=== PATIENT | female | born 1935 | race Caucasian/White ===

== ENCOUNTER 2023-04-02 15:18 | Emergency (ER) | payer MEDICARE, SELFPAY ==
[2023-04-02 15:19] VITALS: BP 153/81; PULSE 69; RESP 20; TEMP 36.6; O2SAT 95; BMI 22.4
--- NOTE | 2023-04-02 15:34 | EX.ED.DYSGE1 ---
HPI History of Present Illness Chief Complaint: Syncope Informant: patient and family Onset/Context/Timing Onset: Today Narrative Narrative: Patient presents with a syncopal episode at dinner. Patient had just had Thanksgiving meal with her family. She states she remembers feeling a bit nauseated and warm. She denies having chest pain or palpitations. She members feeling lightheaded and then remembers people around her talking about calling an ambulance. Family states that she cannot slumped to her side they do not believe she completely lost consciousness. She denies any abdominal pain or nausea at this time. She states she just feels tired. [facility] Medical History (Updated 04/02/23 @ 18:[address] Johanny Panchal MD) Glaucoma Urinary incontinence Allergy/AdvReac Type Severity Reaction Status Date / Time No Known Allergies Allergy Verified 04/02/23 15:19 Social History Smoking Status: Never smoker ROS ROS ED Constitutional Constitutional ED: Denies chills or fever(s) Eyes Eyes: Denies change in vision ENT ENT ED: Denies rhinorrhea or sore throat Cardiovascular Cardiovascular: Denies chest pain or palpitations Respiratory/Chest Respiratory/Chest: Denies cough or dyspnea Gastrointestinal Gastrointestinal: Reports abdominal pain and nausea; Denies diarrhea or vomiting Genitourinary Genitourinary ED: Reports other Details: Increased episodes of incontinence recently. ; Denies dysuria Musculoskeletal Musculoskeletal: Denies back pain or extremity pain Integumentary Denies Abrasions or rash Neurologic Neurologic: Reports weakness; Denies headache(s) Psychiatric Psychiatric: Denies anxiety or depression Allergic/Immunologic Allergic/Immunologic ED: Denies lip swelling or urticaria EXAM Physical Exam Const Vital Signs: 04/02/23 15:19 04/02/23 15:27 Temperature 97.8 F Temperature Source Temporal Pulse Rate 69 Respiratory Rate 20 H Respiratory Effort Normal Non-Labored Respiratory Pattern Normal Blood Pressure 153/81 H Blood Pressure Mean 105 Pulse Ox 95 Oxygen Delivery Method Room Air Positive well nourished and well developed General Appearance ED: well developed HEENT Reports moist mucous membranes Eyes EOMs intact bilaterally Chest Wall inspection of chest normal and palpation of chest normal Resp normal respiratory effort and clear to auscultation bilaterally Cardio regular rate and regular rhythm GI non-tender Auscultation: hypoactive bowel sounds Palpation: soft Extremity normal to inspection Neuro oriented x3 and no sensory deficits noted Motor Exam: strength 5/5 throughout Psych mental status grossly normal Skin no rashes or lesions noted MDM MDM MDM Narrative Medical decision making narrative: Patient placed on triage registered nurse. EKG obtained to evaluate for cardiac arrhythmia/ischemia. Chest x-ray obtained to evaluate for acute lung pathology, cardiac size, or mediastinal abnormality. Labwork obtained to evaluate for leukocytosis, anemia, and electrolyte derangement. Urinalysis obtained to evaluate for infection/hematuria. History & Record Review Discussion w/independent historian: Patient and Family Lab Data Attestation: I reviewed the patient's lab results. Labs: Laboratory Results - last 24 hr 04/02/23 04/02/23 15:22 17:30 WBC 7.7 RBC 5.02 Hgb 15.2 H Hct 46.0 MCV 91.6 MCH 30.3 MCHC 33.0 RDW Std Deviation 45.1 H RDW Coeff of Vi 13.3 Plt Count 201 MPV 11.2 Immature Gran % (Auto) 0.100 Neut % (Auto) 57.7 Lymph % (Auto) 29.8 Dougherty % (Auto) 9.7 Eos % (Auto) 2.2 Baso % (Auto) 0.5 Absolute Neuts (auto) 4.4 Absolute Lymphs (auto) 2.28 Nucleated RBC % 0 Sodium 139 Potassium 3.7 Chloride 107 Carbon Dioxide 24.0 Anion Gap 8 BUN 22 H Creatinine 0.89 Estim Creat Clear Calc 31.38 Est GFR (MDRD) Af Amer 77 Est GFR (MDRD) Non-Af 64 BUN/Creatinine Ratio 24.7 H Glucose 119 H Calcium 9.3 Troponin I High Sens 45 39 Radiography Chest X-Ray - ED: 1 View, Read by ED Physician, Chronic Changes and No Infiltrates Diagnostic Testing: Clinical Impression(s) from Imaging Studies Chest X-Ray 04/02/23 15:45 IMPRESSION: No radiographic evidence of acute cardiopulmonary disease. Electronically Signed: Remigio Maria MD at 16:22 EST , EKG Initial EKG: Attestation: I personally reviewed and interpreted this EKG as follows: Interpretation: Sinus Bradycardia (Sinus bradycardia 58 bpm. No acute ischemia.) Treatment and Re-Evaluation :: CBC was normal white count 7.7 with hemoglobin slightly concentrated at 15.2. Differential is unremarkable. Chemistry studies significant for BUN of 22 with normal creatinine. I do not have any prior values for comparison. Her glucose is 119. Her initial troponin is 45 with a repeat troponin of 39. EKG is sinus bradycardia with no acute ischemia. Patient has had no significant cardiac arrhythmias while here on the monitor. Portable chest x-ray per my interpretation was chronic changes with no focal infiltrate. Radiology interpretation is reviewed and agrees. When patient was up to the bedside commode she had a large emesis as well as a large bowel movement. She was given a dose of Zofran and does feel improved at this time. Patient states that prior to her near syncopal episode she was lightheaded and nauseated as well. I do believe she had a vasovagal episode. Family states that she has had syncope in the past and had significant work-up with no acute cause. At this time patient and family are comfortable with discharge to home and close follow-up. Return instructions are given. Discharge Plan Triage Chief Complaint: Syncope ED Provider: Johanny Panchal Dx/Rx/DC Orders Clinical Impression: Vasovagal near-syncope Instructions: ED Near-Fainting- Vagal Reaction Primary Care Provider: Daphne Jacobsen MD Referrals: Daphne Jacobsen MD [Other] - 5-7 Days Disposition Disposition: Home, Self Care
--- NOTE | 2023-04-02 15:36 | ED.RN ---
NO OLD EKG
--- NOTE | 2023-04-02 15:45 | RAD_ITS ---
EXAM: XR CHEST, 1 VIEW CLINICAL INDICATION: sob TECHNIQUE: Frontal view of the chest. COMPARISON: No relevant prior studies available. FINDINGS: LUNGS AND PLEURAL SPACES: Unremarkable. No consolidation or edema. No pneumothorax. No effusion. HEART: Unremarkable. Cardiac silhouette not enlarged. MEDIASTINUM: Central airways and mediastinal contour are unremarkable. BONES/JOINTS: Unremarkable. No acute fracture. SOFT TISSUES: Unremarkable. RAD/Chest 1 View (Portable) IMPRESSION: No radiographic evidence of acute cardiopulmonary disease. Electronically Signed: Remigio Maria MD at 16:22 EST ,
[2023-04-02 15:46] LABS: Absolute Lymphocyte Count 2.28 X10^3/uL (0.83-4.51); Absolute Neutrophil Count 4.4 X10^3/uL (2.0-7.7); Basophil# 0.04 X10^3/uL; Basophil% 0.5 % (0-1); Eosinophil# 0.17 X10^3/uL; Eosinophils% 2.2 % (0-5); Hemoglobin 15.2 g/dL (12.0-15.0); Lymphocyte # 2.28 X10^3/ul (0.83-4.51); Lymphocyte % 29.8 % (19-41); Mean Corpuscular Hgb 30.3 pg (27.0-32.0); Mean Corpuscular Volume 91.6 fL (81-99); Mean Platelet Vol. 11.2 fl (6.2-12.0); Monocyte# 0.74 X10^3/uL; Monocyte% 9.7 % (0-10); NRBC Flagged by Analyzer 0 % (0-5); Neutrophil # 4.41 X10^3/uL (2.7-7.7); Neutrophil % 57.7 % (47-70); Platelet Count 201 K/mm3 (150-450); RBC Distribution Width CV 13.3 % (11.6-14.6); RBC Distribution Width SD 45.1 fl (35.1-43.9); Red Blood Count 5.02 M/mm3 (4.2-5.4); White Blood Count 7.7 K/mm3 (4.4-11.0)
[2023-04-02 16:02] LABS: Anion Gap 8 (5-15); BUN 22 mg/dL (7-18); BUN/Creat Ratio 24.7 RATIO (10-20); Calcium,Total 9.3 mg/dL (8.5-10.1); Chloride 107 mmol/L (98-107); Creatinine, Serum 0.89 mg/dL (0.55-1.02); EST Glomerular Filtration Rate 64 mL/min (>60); Est Glom Filt Rate - Afr Amer 77 mL/min (>60); Estimated Creatinine Clearance 31.38 ml/min; Glucose 119 mg/dL (74-106); Potassium 3.7 mmol/L (3.5-5.1); Sodium Level 139 mmol/L (136-145); Troponin-I HS (w/2H Reflex) 45 pg/mL (3.0-54.0)
[2023-04-02] MEDS: 0.9% Normal Saline (1000mL) 1,000 ML 150 ML IV (16:33)
[2023-04-02] MEDS: Ondansetron 4 MG/2 ML Vial IV (16:34)
[2023-04-02 17:18] VITALS: BP 161/68
[2023-04-02 17:42] LABS: Reflex Troponin-HS? (from REC) Y
[2023-04-02 18:01] LABS: Troponin-I HS 39 pg/mL (3.0-54.0)
== END 2023-04-02 18:25 | disposition home or self-care (01) ==
PROVIDERS: Emergency Provider Emergency Medicine; Visit Provider Emergency Medicine
DX: R55 Syncope and collapse (principal)
CPT/HCPCS: 71045; 80048; 84484; 85025; 93005; 96374; 99285; J7030; J2405